=== PATIENT | male | born 1960 | race African-American/Black ===

== ENCOUNTER 2024-04-13 12:50 | Emergency (ER) | payer MEDICARE, MEDICAID ==
[~2024-04-13] VITALS: Ht 182.9 cm; Wt 81.6 kg
[2024-04-13 12:54] VITALS: O2SAT 98
[2024-04-13] MEDS: SODIUM CHLORIDE 0.9% 1,000 ML IV ONE ×2 (13:19→15:11)
[2024-04-13 13:25] LABS: BASOPHILS % 0.8 % (0.0-2.0); EOSINOPHILS % 4.8 % (0.0-5.0); HEMATOCRIT. 34.1 % (42.0-52.0); LYMPHOCYTES % 22.1 % (20.0-50.0); MEAN CORPUSCULAR HEMOGLOBIN 29.1 pg (28.0-32.0); MEAN CORPUSCULAR HGB CONC 32.3 g/dL (31.0-37.0); MEAN CORPUSCULAR VOLUME 90.2 fL (80.0-94.0); MEAN PLATELET VOLUME 9.3 fl (7.4-10.4); NEUTROPHILS % 64.3 % (40.0-76.0); PLATELET 256 x1000/uL (130-400); RED BLOOD CELL COUNT 3.78 mill/uL (4.7-6.1); RED CELL DISTRIBUTION WIDTH 14.8 % (11.6-14.6); WHITE BLOOD COUNT 8.4 x1000/uL (4.5-11.0)
[2024-04-13 13:36] LABS: PROTHROMBIN TIME 11.1 sec (9.6-11.0)
[2024-04-13 14:21] LABS: CHLORIDE 108 mEq/L (98-107); POTASSIUM 4.3 mEq/L (3.5-5.1); SODIUM 138 mEq/L (136-145)
[2024-04-13 14:22] LABS: CARBON DIOXIDE 21 mEq/L (21-32)
[2024-04-13 14:23] LABS: CALCIUM 9.3 mg/dL (8.7-10.4)
[2024-04-13 14:27] LABS: CREATININE 2.1 mg/dL (0.6-1.3); GLUCOSE 127 mg/dL (70-105)
[2024-04-13 14:28] LABS: TROPONIN I HIGH SENSITIVITY 6 ng/L (3.0-53); UREA NITROGEN BLOOD 35 mg/dL (9-23)
[2024-04-13 15:40] LABS: CREATINE KINASE 30 IU/L (46-171)
[2024-04-13 16:19] VITALS: BP 124/68; PULSE 79; RESP 12; TEMP 98.4
== END 2024-04-13 17:00 | disposition home or self-care (01) ==
LOC: ER 12:50
DX: T67.5XXA Heat exhaustion, unspecified, initial encounter (principal); N17.9 Acute kidney failure, unspecified; E11.9 Type 2 diabetes mellitus without complications; I11.0 Hypertensive heart disease with heart failure; I50.9 Heart failure, unspecified; R51.9 Headache, unspecified; Z86.73 Personal history of transient ischemic attack (TIA), and cerebral infarction without residual deficits; Z98.890 Other specified postprocedural states; X58.XXXA Exposure to other specified factors, initial encounter; Y93.89 Activity, other specified; Y92.89 Other specified places as the place of occurrence of the external cause; Y99.8 Other external cause status
CPT/HCPCS: 99284; 96360; 70450; 71045; 80048; 82550; 83880; 85025; 85610; 84484; 36415; J7030